=== PATIENT | male | born 1960 | race American Indian/Alaskan Native ===

== ENCOUNTER 2020-01-29 08:54 | Outpatient (CLI) | payer BC ==
--- NOTE | 2020-01-29 15:13 | Nuclear Medicine Report ---
NUCLEAR MEDICINE MUGA GATED CARDIAC HISTORY: Cardiomyopathy TECHNIQUE: 21.2 mCi of technetium 99m labeled red blood cells were administered. First pass technique was utilized. COMPARISON: None. FINDINGS: Heart rate measures 49 bpm. The cardiac ejection fraction measures 55.9%. Signer Name: Gordo Montanez Jr, MD Signed: 01/29/2020 3:08 PM Workstation Name: [id number]
== END 2020-01-29 08:55 | disposition home or self-care (01) ==
LOC: NM 08:54
PROVIDERS: ATTEND Internal Medicine Cardiovascular Disease
DX: I42.9 Cardiomyopathy, unspecified (principal)
CPT/HCPCS: 78472; A9560; J1642